=== PATIENT | male | born 1940 | race Caucasian/White ===

== ENCOUNTER 2020-05-04 13:48 | Inpatient (IN) | payer MEDICARE ==
[~2020-05-04] VITALS: Ht 190.5 cm; Wt 89.5 kg
[2020-05-04] MEDS ORDERED: LIDOCAINE 2%/EPI 1:100,000 20 ML VIAL. INJ ONE (14:15)
--- NOTE | 2020-05-04 15:05 | RAD ---
EXAM: CT head, facial bones, and cervical spine without contrast INDICATION: Jaw pain and swelling after head injury COMPARISON: None TECHNIQUE: Axial CT imaging through the head, facial bones, and cervical spine without intravenous co ntrast. Sagittal and coronal reformats were obtained. One or more of the following individualized dose reduction techniques were utilized for this examinat ion: 1. Automated exposure control 2. Adjustment of the mA and/or kV according to patient size 3. Use of iterative reconstruction technique. FINDINGS: CT head: Ventricles and sulci are mildly enlarged. There is mild periventricular white matter hypoattenuation. No intracranial hemorrhage, acute infarct, or mass lesion. The calvarium is intact. The paranasal si nuses and mastoid air cells are clear. There are calcifications in the internal carotid arteries. Roseline bes and orbits are intact. Facial bones: There is a comminuted fracture of the left hemimandible involving the parasymphysis and body. This results in a mildly displaced fragment that measures 2.5 x 1.0 cm. Additional displaced o blique fracture of the right mandibular condyle. This extends into the temporomandibular joint which is widened. There is no dislocation. Soft tissue gas and swelling is seen around both fractures. The patient is edentulous. There is a defect in the palatine process on the left with a separate 1.2 x 0. 9 cm chronic-appearing osseous fragment within the defect, of uncertain etiology. This could be posts urgical related to bone grafting for dental implant. Sequela of chronic infection also possible. Glob es and orbits are intact. Pterygoid plates are intact. CT cervical spine: No acute fracture. Alignment is normal. There is moderate disc space narrowing wit h osteophyte formation. Multilevel facet arthrosis. There are varying degrees of foraminal narrowing, greatest on the right C5-C6 where it is moderate. No bony canal narrowing. Prevertebral soft tissues normal. This is portion of the lung apices are clear. IMPRESSION: 1. No acute intracranial abnormality. 2. Mildly displaced fracture of the left hemimandible involving the parasymphysis and body. 3. Mildly displaced fracture of the right mandibular condyle with disruption of the joint. No disloca tion. 4. Abnormality of the left palatine process that may be sequela of bone grafting or sequela of chroni c infection. Correlate clinically. 5. No acute osseous abnormality of the cervical spine. Electronically signed by: Vi Heller MD (05/04/2020 3:03 PM) [id number]
--- NOTE | 2020-05-04 15:07 | ED.ADGEN ---
Past Medical History Past Medical History: No Pertinent History Past Surgical History: No Surgical History Smoking Status: Never Smoker Alcohol Use: None General Adult EDM: Chief Complaint: TRAUMA ALERT HPI: HPI: Patient is a 79 year old male who presents to the ER via EMS with complaints of left lower jaw pain after tripping over his shoes and falling by his mailbox today. Patient reports that when he fell he had both his upper and lower dentures and in the upper denture split in half. He denies any loss consciousness, neck, back, or extremity pain. Patient denies any dizziness prior to the fall. He currently denies any chest pain, shortness of breath, palpitations, fever, cough, abdominal pain, nausea, vomiting, diarrhea, saddle anesthesia, or loss of bowel/bladder control. Patient is unsure when his last tetanus shot was. He denies any medical or surgical history. Patient currently rates pain 3 out of 10 on the pain scale. He denies any alleviating factors the pain is worse with palpation and movement of his lower jaw. Review of Systems: Review of Systems: Complete ROS is negative unless otherwise noted in HPI. Current Medications: Current Medications Medications (Trade) Dose Ordered Sig/[facility] Start Time Stop Time Status Last Admin Dose Admin Cefazolin Sodium (Ancef) 1 gm 1X ONCE 05/04/20 15:30 05/04/20 15:31 DC 05/04/20 15:40 1 GM Diphtheria/ Tetanus/Acell Pertussis (ADACEL TDap SYRINGE) 0.5 ml ONCE ONCE 05/04/20 15:30 05/04/20 15:31 DC 05/04/20 15:42 0.5 ML Lidocaine/ Epinephrine (LIDOCAINE 2%-EPI 1:100,000 multi-dose) 20 ml 1X ONCE 05/04/20 14:15 05/04/20 14:30 DC 05/04/20 14:34 20 ML Morphine Sulfate (Morphine Sulfate) 2 mg PRN Q2HR PRN 05/04/20 15:30 05/05/20 15:29 05/04/20 15:31 2 MG Ondansetron HCl (Zofran) 4 mg PRN Q8HRS PRN 05/04/20 15:30 05/05/20 15:29 05/04/20 15:36 4 MG Sodium Chloride 1,000 ml @ 125 mls/hr Q8H 05/04/20 15:30 05/05/20 15:29 05/04/20 15:37 125 MLS/HR Allergies: Allergies: Allergies Coded Allergies Type Severity Reaction Last Updated Verified iodine Allergy Unknown Hives 05/04/20 Yes Physical Exam: PE: See Above Constitutional: Well developed, well nourished, no acute distress, non-toxic appearance. [] HEENT: Normocephalic, bilateral external ears normal, nose normal; swelling to left mandible with 2 cm stellate laceration present, bleeding controlled; 1 cm horizontal laceration to patient's chin just below the lower lip that extends through the intraoral mucosa, bleeding controlled, no visible foreign body [] Eyes: PERRLA, EOMI, conjunctiva normal, no discharge. [] Neck: Normal range of motion, nontender, supple no stridor. [] Cardiovascular:Heart rate regular rhythm Lungs & Thorax: Respirations even and unlabored, no retractions, no respiratory distress Skin: Warm, dry, no erythema; see HEENT assessment Extremities: No cyanosis, ROM intact, no edema. [] Neurologic: Alert and oriented X 3, normal motor, normal sensory, no focal deficits noted. [] Psychologic: Affect normal, judgement normal, mood normal. [] Current Patient Data: Vital Signs: Vital Signs Date Time Temp Pulse Resp B/P (MAP) Pulse Ox O2 Delivery O2 Flow Rate FiO2 05/04/20 15:31 16 Room Air 05/04/20 15:02 66 166/84 (111) 96 05/04/20 13:48 98.5 98.5 EKG: EKG: [] Heart Score: C/O Chest Pain: No Risk Factors: Risk Factors: DM, Current or recent (<one month) smoker, HTN, HLP, family history of CAD, obesity. Risk Scores: Score 0 - 3: 2.5% MACE over next 6 weeks - Discharge Home Score 4 - 6: 20.3% MACE over next 6 weeks - Admit for Clinical Observation Score 7 - 10: 72.7% MACE over next 6 weeks - Early Invasive Strategies Radiology/Procedures: Radiology/Procedures: PROCEDURE: CT HEAD AND MAXILLOFACIAL WO EXAM: CT head, facial bones, and cervical spine without contrast INDICATION: Jaw pain and swelling after head injury COMPARISON: None TECHNIQUE: Axial CT imaging through the head, facial bones, and cervical spine without intravenous contrast. Sagittal and coronal reformats were obtained. One or more of the following individualized dose reduction techniques were utilized for this examination: 1. Automated exposure control 2. Adjustment of the mA and/or kV according to patient size 3. Use of iterative reconstruction technique. FINDINGS: CT head: Ventricles and sulci are mildly enlarged. There is mild periventricular white matter hypoattenuation. No intracranial hemorrhage, acute infarct, or mass lesion. The calvarium is intact. The paranasal sinuses and mastoid air cells are clear. There are calcifications in the internal carotid arteries. Globes and orbits are intact. Facial bones: There is a comminuted fracture of the left hemimandible involving the parasymphysis and body. This results in a mildly displaced fragment that measures 2.5 x 1.0 cm. Additional displaced oblique fracture of the right mandibular condyle. This extends into the temporomandibular joint which is widened. There is no dislocation. Soft tissue gas and swelling is seen around both fractures. The patient is edentulous. There is a defect in the palatine process on the left with a separate 1.2 x 0.9 cm chronic-appearing osseous fragment within the defect, of uncertain etiology. This could be postsurgical related to bone grafting for dental implant. Sequela of chronic infection also possible. Globes and orbits are intact. Pterygoid plates are intact. CT cervical spine: No acute fracture. Alignment is normal. There is moderate disc space narrowing with osteophyte formation. Multilevel facet arthrosis. There are varying degrees of foraminal narrowing, greatest on the right C5-C6 where it is moderate. No bony canal narrowing. Prevertebral soft tissues normal. This is portion of the lung apices are clear. IMPRESSION: 1. No acute intracranial abnormality. 2. Mildly displaced fracture of the left hemimandible involving the parasymphysis and body. 3. Mildly displaced fracture of the right mandibular condyle with disruption of the joint. No dislocation. 4. Abnormality of the left palatine process that may be sequela of bone grafting or sequela of chronic infection. Correlate clinically. 5. No acute osseous abnormality of the cervical spine. Electronically signed by: Vi Heller MD (05/04/2020 3:03 PM) [id number] Laceration Repair by me: Anesthesia: 2% lidocaine locally with epinephrine Location: Horizontal laceration of chin Tendon/Joint/Nerves: No injury Foreign body: None detected after copious irrigation and exploration with NS and chlorhexidine Technique: 2 simple Interrupted Sutures with 6 oh Prolene Complexity: No subcutaneous sutures/mucosal repair/edge excision Post Closure Length: 1 cm Anesthesia: 2 % lidocaine locally with epinephrine Location: Stellate laceration of external left mandible Tendon/Joint/Nerves: No injury Foreign body: None detected after copious irrigation and exploration with NS and chlorhexidine Technique: 3 simple Interrupted Sutures with 6-0 Prolene Complexity: No subcutaneous sutures/mucosal repair/edge excision Post Closure Length: 2 cm Patient's bleeding was easily controlled in the department and there is no indication of anemia. No evidence of compartment syndrome, neurologic injury, vascular injury, tendon laceration, or foreign body. [] [] Impression: Complete ROS is negative unless otherwise noted in HPI. Course & Med Decision Making: Course & Med Decision Making Pertinent Labs and Imaging studies reviewed. (See chart for details) 1459- Spoke with Dr. Clay Benitez and advised of patient in the ER with jaw fracture. Will admit pt to the hospitalist. 1510-spoke with Dr. Baldwin who is the admitting physician, and care was assumed following discussion of patient. Will admit patient for fall with head injury, mandible fractures, and lip laceration. Patient's vital signs stable. Patient remains afebrile, appears nontoxic, respirations even and unlabored. Patient will be admitted to the medical surgical floor. Patient's case and plan of care also discussed with Dr. Roth 1546-spoke with Dr. Benitez and advised of the open laceration to the left mandible and repair that was made. Also advised that patient has been given a gram of Ancef and is being admitted to the hospitalist. [] Dragon Disclaimer: Dragon Disclaimer: This electronic medical record was generated, in whole or in part, using a voice recognition dictation system. Departure Departure Impression: Primary Impression: Head injury, acute, without loss of consciousness Additional Impressions: Laceration of skin of chin Laceration of intraoral surface of lip Fracture of mandible Disposition: 09 ADMITTED INPT THIS HOSP Admitting Physician: GURMEET marti) Condition: STABLE Referrals: NO PCP (PCP) Problem Qualifiers Primary Impression: Head injury, acute, without loss of consciousness Encounter type: initial encounter Qualified Codes: S09.90XA - Unspecified injury of head, initial encounter Additional Impressions: Laceration of skin of chin Encounter type: initial encounter Qualified Codes: S01.81XA - Laceration without foreign body of other part of head, initial encounter Laceration of intraoral surface of lip Encounter type: initial encounter Qualified Codes: S01.511A - Laceration without foreign body of lip, initial encounter Fracture of mandible Encounter type: initial encounter Fracture type: open Mandible location: unspecified site of mandible Laterality: unspecified laterality Qualified Codes: S02.609B - Fracture of mandible, unspecified, initial encounter for open fracture DARRYL RAMIREZ L[employer] INST[employer]ER May 04, 2020 15:07
[2020-05-04] MEDS ORDERED: ceFAZolin SODIUM IV Push 1 GM VIAL. IVP ONE (15:30)
[2020-05-04] MEDS ORDERED: DIPH,PERTUSS(ACELL),TET VAC/PF 0.5 ML SYRINGE. VAX IM ONE (15:30)
[2020-05-04] MEDS ORDERED: ONDANSETRON PF 4 MG/2 ML VIAL. IV PRN (15:30)
[2020-05-04] MEDS: MORPHINE SULFATE 2 MG/ML VIAL. IV PRN ×2 (15:31→21:45)
[2020-05-04] MEDS: IV NORMAL SALINE 1000ML BAG 1,000 ML IV SCH (15:37)
[2020-05-04 15:49] LABS: BASO % 1 % (0-3); EOS # 0.1 x10^3/uL (0.0-0.7); EOS % 2 % (0-3); HEMATOCRIT 43.3 % (39.0-53.0); HEMOGLOBIN 14.7 g/dL (13.0-17.5); LYMPH # 1.8 x10^3/uL (1.0-4.8); LYMPH % 34 % (24-48); MEAN CORPUSCULAR HEMOGLOBIN 33 pg (25-35); MEAN CORPUSCULAR HGB CONC 34 g/dL (31-37); MEAN CORPUSCULAR VOLUME 97 fL (79-100); MONO # 0.4 x10^3/uL (0.0-1.1); MONO % 7 % (0-9); NEUT % 57 % (31-73); PLATELET COUNT 199 x10^3/uL (140-400); RED BLOOD COUNT 4.47 x10^6/uL (4.30-5.70); RED CELL DISTRIBUTION WIDTH 14.2 % (11.5-14.5); WHITE BLOOD COUNT 5.3 x10^3/uL (4.0-11.0)
[2020-05-04 15:54] LABS: CALCIUM 8.3 mg/dL (8.5-10.1); CREATININE 1.2 mg/dL (0.7-1.3); GFR 58.4; POTASSIUM 3.7 mmol/L (3.5-5.1)
[2020-05-04 16:00] LABS: ALBUMIN 3.5 g/dL (3.4-5.0); TOTAL BILIRUBIN 0.4 mg/dL (0.2-1.0); TOTAL PROTEIN 7.1 g/dL (6.4-8.2)
--- NOTE | 2020-05-04 17:06 | HP ---
ADMIT DATE: 05/04/2020 CHIEF COMPLAINT: Fall with facial trauma. 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 Basically, today he tripped and fell, struck his face. The ER doctor ordered some imaging. He does have bilateral mandibular fracture. He also has a laceration on the upper and lower jaw. We are going to admit the patient. We have consulted Dr. Mororw. PAST MEDICAL HISTORY: Benign. ALLERGIES: IODINE. FAMILY HISTORY: Diabetes. 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 MEDICATIONS: Reviewed, please for the MRAD. REVIEW OF SYSTEMS: GENERAL: No history of weight change, weakness or fevers. SKIN: No bruising, hair changes or rashes. EYES: No blurred, double or loss of vision. NOSE AND THROAT: No history of nosebleeds, hoarseness or sore throat. HEENT: He complains of jaw pain. HEART: No history of palpitations, chest pain or shortness of breath on exertion. LUNGS: Denies cough, hemoptysis, wheezing or shortness of breath. GASTROINTESTINAL: Denies changes in appetite, nausea, vomiting, diarrhea or constipation. GENITOURINARY: No history of frequency, urgency, hesitancy or nocturia. NEUROLOGIC: Denies history of numbness, tingling, tremor or weakness. PSYCHIATRIC: No history of panic, anxiety or depression. ENDOCRINE: No history of heat or cold intolerance, polyuria or polydipsia. EXTREMITIES: Denies muscle weakness, joint pain, pain on walking or stiffness. PHYSICAL EXAMINATION: VITALS: Within normal limits and are stable. GENERAL: No apparent distress. Alert and oriented. HEENT: He has 2 lacerations, 1 on the upper jaw, 1 on the lower jaw. He does have a lot of bruising inside his mouth. He is edentulous. EYES: Extraocular muscles are intact, pupils are equally round and reactive to light and accommodation MUSCULOSKELETAL: Well developed, well nourished, good range of motion ENDOCRINE: No thyromegaly was palpated LYMPHATICS: No cervical chain or axillary nodes were noted HEMATOPOIETIC: No bruising NECK: Supple, no JVD, no thyromegaly was noted. LUNGS: Clear to auscultation in all lung cohen without rhonchi or wheezing. HEART: RRR, S1, S2 present. Peripheral pulses intact, no obvious murmurs were noted. ABDOMEN: Soft, nontender. Positive bowel sounds no organomegaly, normal bowel sounds. EXTREMITIES: Without any cyanosis, clubbing, or edema. Pedal pulses intact, Homans sign is negative. NEUROLOGIC: Normal speech, normal tone. A and O x 3, moves all extremities, no obvious focal deficits. PSYCHIATRIC: Normal affect, normal mood. Stable. SKIN: No ulcerations or rashes, good skin turgor, no jaundice. VASCULAR: Good capillary refill, neurovascular bundle appears to be intact. LABORATORY DATA: Hematology is normal. Electrolytes are normal. ASSESSMENT AND PLAN: Fall with bilateral mandibular fracture. The patient is be admitted. We have consulted Dr. Morrow. For now, we are doing, pain meds, IV fluids, home meds, deep venous thrombosis prophylaxis. Full code. IV saline, p.r.n. morphine. [place] DO DR: [email or web address]/gifty JOB#: [id number] / [id number]
--- NOTE | 2020-05-04 17:59 | PDOC1 ---
H & P. DATE OF SERVICE: DATE: 05/04/20 TIME: 17:43 HPI: 79 YOM was walking to get his mail today and tripped on the concrete and struck his face to the pavement and suffered multiple mandible fractures ROS: Constitutional: Denies fever, fatigue, chills HEENT: Denies sore throat, vision changes Cardio: Denies chest pain, dyspnea with exertion, syncope, palpitations, edema Pulmonary: Denies shortness of breath, cough, wheezing GI: Denies nausea, vomiting, diarrhea, constipation : Denies dysuria, frequency, urgency, incontinence Skin: Denies new lesions Neuro: Denies weakness, paresthesias ED COURSE: Admitted, imaging and H&P successfully closed lacerations by ER team Imaging demonstrates comminuted left mandibular body/parasymphysis fracture and right intracapsular condylar fracture PMH: HTN Elderly FAMILY HX: HTN DM SOCIAL HX: Patient denies EtHO/Tob/Substance use SURGICAL HX: unremarkable MEDS: Reviewed and reconciled ALLERGIES: Reviewed PE: Alert, oriented, no acute distress EOMI, sclera non-icteric Right condylar tenderness Left mandibular body/parasymphysis tenderness with grossly mobile mandible fracture. ++hematoma, and bleeding from intraoral lip laceration. Neck supple RRR, no murmur CTAB, no wheezes, crackles or rhonchi Soft, NT, ND, normal bowel sounds, no rebound, guarding. Negative Basurto's sign. No edema, cyanosis. Normal capillary refill. Calm, cooperative, mood/affect within normal limits ASSESSMENT & PLAN: 79 yom s/p fall from standing with resulting mandible fractures Plan Admission with IM, OMFS to consult and plan to operate on 05/05/2020 Full liquid (no-chew) diet and NPO after midnight Consent obtained. Anticipate hospital course with admission and dischcarge this weekend as patient demonstrates appropriate recovery Justifications for Admission Other Justification CARD,KAYLYN Chan DMD May 04, 2020 17:59
--- NOTE | 2020-05-04 18:34 | NUR ---
Pt. here from ER and placed in bed. Pt. states pain is tolerable and he is comfortable. at bedside.
[2020-05-04 19:15] VITALS: BP 183/91
[2020-05-04 23:20] VITALS: BP 110/83
[2020-05-05] MEDS: MORPHINE SULFATE 2 MG/ML VIAL. IV PRN ×2 (02:40→08:13)
[2020-05-05] MEDS: IV NORMAL SALINE 1000ML BAG 1,000 ML IV SCH ×2 (02:40→13:52)
[2020-05-05 03:13] VITALS: BP 165/86
[2020-05-05] MEDS ORDERED: OMEP20TA63 PO (04:42)
[2020-05-05 07:00] VITALS: BP 159/82
--- NOTE | 2020-05-05 08:46 | PDOC ---
[employer] PROGRESS NOTE Date of Service DOS: DATE: 05/05/20 TIME: 08:33 Chief Complaint Chief Complaint A/P: Accidental fall Mildly displaced fracture of the left hemimandible involving the parasymphysis and body. Mildly displaced fracture of the right mandibular condyle with disruption of the joint. No dislocation. Abnormality of the left palatine process that may be sequela of bone grafting or sequela of chronic infection. Correlate clinically. No acute osseous abnormality of the cervical spine. History of Present Illness History of Present Illness Mr Altman is a 79 yo M w/ no PMHx who presents to the ER via EMS with complaints of left lower jaw pain after tripping over his shoes and falling by his mailbox today. Patient reports that when he fell he had both his upper and lower dentures and in the upper denture split in half. He denies any loss consciousness, neck, back, or extremity pain. Patient denies any dizziness prior to the fall. He currently denies any chest pain, shortness of breath, palpitations, fever, cough, abdominal pain, nausea, vomiting, diarrhea, saddle anesthesia, or loss of bowel/bladder control.who tripped and kicked his right heel with his left foot. Pain controlled in his jaw. NPO for jaw surgery today. Vitals/I&O Vitals/I&O: Vital Signs Date Time Temp Pulse Resp B/P (MAP) Pulse Ox O2 Delivery O2 Flow Rate FiO2 05/05/20 08:13 20 Room Air 05/05/20 07:00 98.8 56 159/82 (107) 94 98.8 I & O 05/04/20 05/04/20 05/05/20 15:00 23:00 07:00 Intake Total 480 ml Output Total 250 ml Balance 230 ml Physical Exam General: Alert, Oriented X3, Cooperative, moderate distress Heart: Regular rate, Normal S1, Normal S2 Lungs: Clear Abdomen: Normal bowel sounds, Soft Extremities: No clubbing, No cyanosis Skin: No rashes, No breakdown Labs Labs: Laboratory Tests Test 05/04/20 14:04 05/05/20 00:35 White Blood Count 5.3 x10^3/uL (4.0-11.0) Red Blood Count 4.47 x10^6/uL (4.30-5.70) Hemoglobin 14.7 g/dL (13.0-17.5) Hematocrit 43.3 % (39.0-53.0) Mean Corpuscular Volume 97 fL (79-100) Mean Corpuscular Hemoglobin 33 pg (25-35) Mean Corpuscular Hemoglobin Concent 34 g/dL (31-37) Red Cell Distribution Width 14.2 % (11.5-14.5) Platelet Count 199 x10^3/uL (140-400) Neutrophils (%) (Auto) 57 % (31-73) Lymphocytes (%) (Auto) 34 % (24-48) Monocytes (%) (Auto) 7 % (0-9) Eosinophils (%) (Auto) 2 % (0-3) Basophils (%) (Auto) 1 % (0-3) Neutrophils # (Auto) 3.0 x10^3/uL (1.8-7.7) Lymphocytes # (Auto) 1.8 x10^3/uL (1.0-4.8) Monocytes # (Auto) 0.4 x10^3/uL (0.0-1.1) Eosinophils # (Auto) 0.1 x10^3/uL (0.0-0.7) Basophils # (Auto) 0.0 x10^3/uL (0.0-0.2) Sodium Level 141 mmol/L (136-145) Potassium Level 3.7 mmol/L (3.5-5.1) Chloride Level 103 mmol/L (98-107) Carbon Dioxide Level 30 mmol/L (21-32) Anion Gap 8 (6-14) Blood Urea Nitrogen 23 mg/dL (8-26) Creatinine 1.2 mg/dL (0.7-1.3) Estimated GFR (Cockcroft-Gault) 58.4 BUN/Creatinine Ratio 19 (6-20) Glucose Level 139 mg/dL (70-99) Calcium Level 8.3 mg/dL (8.5-10.1) Total Bilirubin 0.4 mg/dL (0.2-1.0) Aspartate Amino Transf (AST/SGOT) 24 U/L (15-37) Alanine Aminotransferase (ALT/SGPT) 36 U/L (16-63) Alkaline Phosphatase 79 U/L (46-116) Total Protein 7.1 g/dL (6.4-8.2) Albumin 3.5 g/dL (3.4-5.0) Albumin/Globulin Ratio 1.0 (1.0-1.7) SARS-CoV-2 Antigen (Rapid) Negative (NEGATIVE) Assessment and Plan Assessmemt and Plan Problems Medical Problems: (1) Fracture of mandible Status: Acute (2) Head injury, acute, without loss of consciousness Status: Acute (3) Laceration of intraoral surface of lip Status: Acute (4) Laceration of skin of chin Status: Acute Comment Review of Relevant I have reviewed the following items florian (where applicable) has been applied. Medications: Current Medications Medications (Trade) Dose Ordered Sig/[facility] Route PRN Reason Start Time Stop Time Status Last Admin Dose Admin Lidocaine/ Epinephrine (LIDOCAINE 2%-EPI 1:100,000 multi-dose) 20 ml 1X ONCE INJ 05/04/20 14:15 05/04/20 14:30 DC 05/04/20 14:34 Cefazolin Sodium (Ancef) 1 gm 1X ONCE IVP 05/04/20 15:30 05/04/20 15:31 DC 05/04/20 15:40 Diphtheria/ Tetanus/Acell Pertussis (ADACEL TDap SYRINGE) 0.5 ml ONCE ONCE VAX IM 05/04/20 15:30 05/04/20 15:31 DC 05/04/20 15:42 Ondansetron HCl (Zofran) 4 mg PRN Q8HRS PRN IV NAUSEA/VOMITING 05/04/20 15:30 05/05/20 15:29 05/04/20 15:36 Morphine Sulfate (Morphine Sulfate) 2 mg PRN Q2HR PRN IV PAIN 05/04/20 15:30 05/05/20 15:29 05/05/20 08:13 Sodium Chloride 1,000 ml @ 125 mls/hr Q8H IV 05/04/20 15:30 05/05/20 15:29 05/05/20 02:40 Justifications for Admission Other Justification JOLIE WOODWARD MD May 05, 2020 08:46
--- NOTE | 2020-05-05 09:51 | NUR ---
SW following. Discussed with RN, pt from home with , room air, NPO, rapid COVID-19 negative. Pt having surgery today around 1630. PT/OT being ordered for after surgery. SW will continue to follow.
[2020-05-05 11:00] VITALS: BP 195/94
[2020-05-05] MEDS ORDERED: CHLORHEXIDINE 0.12% 15 ML MOUTHWASH. ONE (14:44)
[2020-05-05] MEDS ORDERED: BUPIVACAINE-EPI 0.5% 30 ML VIAL KIT. ONE (14:44)
[2020-05-05] MEDS ORDERED: OXYMETAZOLINE 0.05% NASAL SPRAY 30ML BOTTLE. NS ONE (14:44)
[2020-05-05] MEDS ORDERED: fentaNYL PF VIAL 100 MCG/2 ML VIAL IVP PRN ×2 (14:45)
[2020-05-05] MEDS ORDERED: CONTRAST GIVEN. MC PRN (14:45)
[2020-05-05] MEDS ORDERED: PROCHLORPERAZINE 10 MG/2 ML VIAL. IVP PRN (14:45)
[2020-05-05] MEDS ORDERED: CHLORHEXIDINE 0.12% 15 ML MOUTHWASH. SWSP ONE (14:45)
[2020-05-05] MEDS ORDERED: HYDROmorphone 2 MG/ML VIAL IVP PRN (14:45)
[2020-05-05] MEDS ORDERED: MORPHINE SULFATE 2 MG/ML VIAL. IVP PRN (14:45)
[2020-05-05] MEDS ORDERED: IV RINGERS,LACTATED 1000ML 1,000 ML IV SCH (14:45)
[2020-05-05 15:00] VITALS: BP 168/89
[2020-05-05] MEDS ORDERED: LIDOCAINE 2% PF 5 ML VIAL. ONE (15:38)
[2020-05-05] MEDS ORDERED: ROCURONIUM 50 MG/5 ML VIAL. ONE ×2 (15:38→17:51)
[2020-05-05] MEDS ORDERED: fentaNYL PF VIAL 100 MCG/2 ML VIAL ONE ×2 (15:38→17:47)
[2020-05-05] MEDS ORDERED: PROPOFOL 10 MG/ML (20ML) VIAL. IV ONE (15:38)
[2020-05-05] MEDS ORDERED: LIDOCAINE 2% TOPICAL JELLY 5GM TUBE. TP ONE (15:42)
[2020-05-05] MEDS ORDERED: FAMOTIDINE 20 MG/2 ML VIAL ONE (16:06)
[2020-05-05] MEDS ORDERED: SUCCINYLCHOLINE 200 MG/10 ML VIAL. ONE (16:06)
--- NOTE | 2020-05-05 16:37 | PDOC ---
GENERAL General: 79 yom HD 2 AAOX3 Patient held NPO today for OR intervention ORIF today patient reports that he is comfortable Discussed lesion on upper left maxilla, plan for biopsy today VITAL SIGNS Vital Signs/I&O: Vital Signs Date Time Temp Pulse Resp B/P (MAP) Pulse Ox O2 Delivery O2 Flow Rate FiO2 05/05/20 16:15 99.7 70 20 156/84 95 Room Air 99.7 I & O 05/04/20 05/04/20 05/05/20 15:00 23:00 07:00 Intake Total 480 ml Output Total 250 ml Balance 230 ml ALLERGIES Allergies: Allergies Coded Allergies Type Severity Reaction Last Updated Verified iodine Allergy Unknown Hives 05/04/20 Yes LAB Lab: Laboratory Tests Test 05/05/20 00:35 SARS-CoV-2 Antigen (Rapid) Negative (NEGATIVE) ASSESSMENT & PLAN A&P 79 yom s/p fall with resulting comminuted mandible fracture. Incidental lesion found on upper left maxilla / palate area Plant to OR today for ORIF percutaenous approach and fixation of left mandible, and closed reduction of right TMJ Add to plan to biopsy upper left maxillary lesion Justifications for Admission Other Justification CARD,KAYLYN Chan DMD May 05, 2020 16:37
[2020-05-05] MEDS: AMPICILLIN/SULBACTAM 3 GM in IV NORMAL SALINE 100ML 100 ML IV SCH ×2 (17:06→23:43)
[2020-05-05] MEDS ORDERED: ONDANSETRON PF 4 MG/2 ML VIAL. ONE (17:23)
[2020-05-05] MEDS ORDERED: DEXAMETHASONE SOD PHOS 4 MG/ML VIAL ONE (17:23)
[2020-05-05] MEDS ORDERED: SEVOFLURANE > 120 MINUTES. IH ONE (17:47)
[2020-05-05] MEDS ORDERED: GLYCOPYRROLATE 1 MG/5 ML VIAL. ONE (18:03)
[2020-05-05] MEDS ORDERED: NEOSTIGMINE METHYLSULFATE 5 MG/5 ML SYRINGE. ONE (18:03)
[2020-05-05] MEDS ORDERED: BACITRACIN TOPICAL OINT PACKET. TP ONE (19:43)
--- NOTE | 2020-05-05 20:45 | PDOC4 ---
OPERATIVE NOTE Date: Date: May 05, 2020 Pre-Op Diagnosis: Comminuted mandible fractures Left palatal lesion (maxillary lesion) Post-Op Diagnosis: Comminuted mandible fractures Left palatal lesion (maxillary lesion) Procedure Performed: Percutaneous ORIF Comminuted mandible fractures Biopsy Left palatal lesion (maxillary lesion) Surgeon: anna Anesthesia Type: Stefani Blood Loss: 150 Specimans Obtained: Left palatal lesion (maxillary lesion) Findings: see dictation Complications: none noted Operative Note: see KAYLYN Constantino DMD May 05, 2020 20:45
--- NOTE | 2020-05-05 20:50 | PDOC ---
SUBJECTIVE Subjective OR case completed, Planning Discharge when appropriate Pt recovering well in PACU OBJECTIVE Objective Pt recovering well in PACU Vital Signs Vital Signs Date Time Temp Pulse Resp B/P (MAP) Pulse Ox O2 Delivery O2 Flow Rate FiO2 05/05/20 16:15 99.7 70 20 156/84 95 Room Air 99.7 05/05/20 15:00 97.8 63 18 168/89 (115) 93 Room Air 97.8 05/05/20 11:00 97.5 73 19 195/94 (127) 91 Room Air 97.5 05/05/20 08:43 20 91 Room Air 05/05/20 08:13 20 Room Air 05/05/20 08:00 Room Air 05/05/20 07:00 98.8 56 18 159/82 (107) 94 Room Air 98.8 05/05/20 03:13 98.8 74 20 165/86 (112) 93 Room Air 98.8 05/05/20 03:10 Room Air 05/05/20 02:40 Room Air 05/04/20 23:20 98.1 69 18 110/83 (92) 94 Room Air 98.1 05/04/20 22:15 Room Air 05/04/20 21:45 Room Air I & O Intake and Output 05/05/20 07:00 Intake Total 480 ml Output Total 250 ml Balance 230 ml Intake Oral 480 ml Output Urine Total 250 ml ASSESSMENT/PLAN Assessment/Plan OR case completed, Ok to D/C from OMS perspective Planning Discharge when appropriate from Internal medicine perspective Recs: Peridex BID PO Augmentin for 5-7 days Bacitracin BID x 4-5 days then switch wound care to Vaseline F/U with OMS next Friday Call Dr. Coleman's clinic with any questions or concerns [phone] COMMENT Lab Laboratory Tests Test 05/05/20 00:35 SARS-CoV-2 Antigen (Rapid) Negative (NEGATIVE) Justifications for Admission Other Justification KAYLYN COLEMAN DMD May 05, 2020 20:50
[2020-05-05] MEDS: BACITRACIN TOPICAL OINT PACKET. TP SCH (22:01)
[2020-05-05] MEDS: CHLORHEXIDINE 0.12% 15 ML MOUTHWASH. SWSP SCH (22:01)
--- NOTE | 2020-05-05 22:07 | NUR ---
2107- This RN received report from Jessica in PACU. Pt. arrived on unit at 5 by bed. Pt. is alert to self and is able to verbalize his first and last name but no other questions. Pt. does nod yes or no. He was able to swallow a cup of pudding, some apple sauce and water without difficulty. Will continue to monitor.
--- NOTE | 2020-05-05 22:28 | OP ---
DATE OF SURGERY: 05/05/2020 OPERATING SERVICE: glass inserter. ATTENDING PHYSICIAN: Angelo Coleman DMD PREOPERATIVE DIAGNOSES: 1. Right intracapsular condylar fracture of the mandible. 2. Left comminuted mandible fracture body and parasymphysis. 3. Left maxillary palatal lesion. POSTOPERATIVE DIAGNOSES: 1. Right intracapsular condylar fracture of the mandible. 2. Left comminuted mandible fracture body and parasymphysis. 3. Left maxillary palatal lesion. PROCEDURES PERFORMED: 1. ORIF of left comminuted mandible fracture with a percutaneous approach. 2. Excision of palatal lesion. High suspicion for peripheral ossifying fibroma. BRIEF HISTORY: The patient is a 79-year-old male who reports he was walking in his driveway and tripped and fell on his face and fractured his mandible and reported to the [facility] ER with significant pain, ecchymosis and hematoma. He was reviewed by the ER team, found to have a stable C-spine, cleared head scan, but with aforementioned mandibular injuries. History and physical was also performed by Oral Maxillofacial Surgery Service where he was found to have comminuted mandible fractures and maxillary palatal lesion was an incidental finding. The patient noted this lesion has been present for years and has been slowly growing and occupying large portion of the left palate. History and physical was performed. Permit was obtained. The patient was booked for surgery the following day. SPECIMEN SENT: Left maxillary palatal lesion. High suspicion for peripheral ossifying fibroma, request has been placed for PCL lab for cross lab consultation. DRAINS PLACED: None. COMPLICATIONS: None noted at the time of surgery. ESTIMATED BLOOD LOSS: Approximately 150 mL. OPERATIVE DESCRIPTION: After the history and physical was updated in the preoperative holding area, the patient was transported by the Anesthesia Service to the operating suite, placed in the supine position. General anesthesia was induced. He was intubated with an oral intubation, which was secured to the right face. The patient was then prepped and draped in normal sterile fashion. Timeout was initiated and performed without complication. The patient was then prepped and draped in normal fashion. The procedure began with administration of 15 mL of 0.5% Marcaine, 1:200,000 epinephrine into the neck. At the culmination of the procedure, an additional 15 mL were administered into the neck and maxilla as the lesion was removed from the maxilla. Preoperative antibiotics were administered. All pressure points were padded and checked by preoperatively and Orellana was also placed. Surgery began with a full-thickness, skin incision with a 15 blade in a curvilinear fashion to align with natural neck creases. Incision was taken through the skin and subcutaneous tissue, platysma and through the superficial layer of the deep cervical fascia. This layer was then elevated and dissection was carried superiorly to the neck and to the inferior border of the mandible. The comminuted mandible fractures were identified, then reduced and fixation was performed with KLS mini plates. Two mini plates were placed at the inferior border to grossly reduce the fractures. A template was then adapted and a 2.0 locking reconstruction plate was utilized on the lateral inferior border of the mandible to perform excellent stabilization of this fracture. All screws were placed under copious normal sterile saline irrigation. The wound was then lavaged with copious normal sterile saline irrigation. The reduction appeared to be appropriate and optimized considering the oblique nature of the fractures and comminution of the fractures. The wound was then closed in layers with 3-0 Vicryl sutures and the skin was closed with a 4-0 Prolene running suture. The anesthesia was then administered into the neck and then the mouth. Moistened throat pack was placed and mouth was then cleansed with Peridex. The lesion was on the maxilla and occupied much of the left maxillary palatal area and resulted in significant resorption of the palatal bone. The stalk of the lesion was identified and severed with a combination of a 15 blade and Bovie electrocautery. The foot process of the stalk of the lesion was curetted to address this area and to attempt to remove any recurrence propagation of this lesion in this area. The wound was lavaged with copious normal sterile saline irrigation and oversewn with 3-0 Vicryl suture with 3 [id number] sutures to assist with hemostasis. Attention was then directed to clean the area, oral cavity was lavaged and suctioned, the throat pack was removed, and an OG was passed and the stomach was decompressed. The patient was then returned to the care of Anesthesia, where he was awakened and extubated without complication and transported to the PACU in stable condition. ANGELO COLEMAN DMD DR: [email or web address]/gifty JOB#: [id number] / [id number] WEI
[2020-05-05 23:30] VITALS: BP 149/71
[2020-05-06 00:01] VITALS: BP 144/70
[2020-05-06 02:00] VITALS: BP 154/79
[2020-05-06 03:00] VITALS: BP 146/72
[2020-05-06] MEDS: AMPICILLIN/SULBACTAM 3 GM in IV NORMAL SALINE 100ML 100 ML IV SCH ×2 (05:23→11:08)
[2020-05-06] MEDS ORDERED: HYDROcodone/APAP 10/325 1 TAB TABLET PO PRN (05:30)
[2020-05-06] MEDS ORDERED: HYDROcodone/APAP 5/325MG 1 TAB TABLET PO PRN (05:30)
[2020-05-06 07:00] VITALS: BP 171/83
--- NOTE | 2020-05-06 08:24 | RAD ---
Exam performed: 2 views mandible. HISTORY: Postop evaluation. DATE OF SERVICE: 05/05/2020. COMPARISON: CT maxillofacial from 05/04/2020. FINDINGS: AP and lateral view of the mandible is obtained. There is interval open reduction internal fixation o f a previously seen comminuted fracture of the body of mandible secured by malleable plate and severa l screws. Alignment appears satisfactory. Previously seen fracture right mandibular condyle is not cl early identified on this study due to overlapping structures. There is diffuse soft tissue swelling. No foreign bodies identified. IMPRESSION: Interval open reduction and internal fixation of a previously seen comminuted mandibular fracture Electronically signed by: Jayashree Rodriguez MD (05/06/2020 8:22 AM) [id number]
[2020-05-06] MEDS: CHLORHEXIDINE 0.12% 15 ML MOUTHWASH. SWSP SCH (09:06)
[2020-05-06] MEDS: BACITRACIN TOPICAL OINT PACKET. TP SCH (09:07)
--- NOTE | 2020-05-06 09:23 | PDOC ---
[employer] PROGRESS NOTE Date of Service DOS: DATE: 05/06/20 TIME: 09:22 Chief Complaint Chief Complaint A/P: Accidental fall Mildly displaced fracture of the left hemimandible involving the parasymphysis and body. Mildly displaced fracture of the right mandibular condyle with disruption of the joint. No dislocation. Abnormality of the left palatine process that may be sequela of bone grafting or sequela of chronic infection. Correlate clinically. No acute osseous abnormality of the cervical spine. History of Present Illness History of Present Illness Mr Altman is a 79 yo M w/ no PMHx who presents to the ER via EMS with complaints of left lower jaw pain after tripping over his shoes and falling by his mailbox today. Patient reports that when he fell he had both his upper and lower dentures and in the upper denture split in half. He denies any loss consciousness, neck, back, or extremity pain. Patient denies any dizziness prior to the fall. He currently denies any chest pain, shortness of breath, palpitations, fever, cough, abdominal pain, nausea, vomiting, diarrhea, saddle anesthesia, or loss of bowel/bladder control.who tripped and kicked his right heel with his left foot. 05/05: S/p ORIF of left comminuted mandible fracture with a percutaneous approach and Excision of palatal lesion. (High suspicion for peripheral ossifying fibroma per Dr Benitez) Seen POD #1. Pain is well controlled. Tolerating p.o. well. Discussed with bedside is able to ambulate around the halls well no PT or OT needs. Discussed with Dr. Benitez: Peridex BID PO Augmentin for 5-7 days Bacitracin BID x 4-5 days then switch wound care to Vaseline F/U with OMS next Friday Call Dr. Benitez's clinic with any questions or concerns Please have patient call Friday for appointment [phone] Vitals/I&O Vitals/I&O: Vital Signs Date Time Temp Pulse Resp B/P (MAP) Pulse Ox O2 Delivery O2 Flow Rate FiO2 05/06/20 07:00 98.1 93 18 171/83 (112) 94 Room Air 98.1 05/05/20 20:40 10 l I & O 05/05/20 05/05/20 05/06/20 15:00 23:00 07:00 Intake Total 1300 ml Output Total 375 ml 400 ml 200 ml Balance -375 ml 900 ml -200 ml Physical Exam General: Alert, Oriented X3, Cooperative, moderate distress Heart: Regular rate, Normal S1, Normal S2 Lungs: Clear Abdomen: Normal bowel sounds, Soft Extremities: No clubbing, No cyanosis Skin: No rashes, No breakdown Assessment and Plan Assessmemt and Plan Problems Medical Problems: (1) Fracture of mandible Status: Acute (2) Head injury, acute, without loss of consciousness Status: Acute (3) Laceration of intraoral surface of lip Status: Acute (4) Laceration of skin of chin Status: Acute Comment Review of Relevant I have reviewed the following items florian (where applicable) has been applied. Medications: Current Medications Medications (Trade) Dose Ordered Sig/Romana Route PRN Reason Start Time Stop Time Status Last Admin Dose Admin Ringer's Solution 1,000 ml @ 30 mls/hr Q24H IV 05/05/20 14:45 05/06/20 02:44 DC 05/05/20 20:33 Bupivacaine HCl/ Epinephrine Bitart (Sensorcain-Epi 0.5% Kit) 30 ml STK-MED ONCE .ROUTE 05/05/20 14:44 05/05/20 14:45 DC 05/05/20 17:25 Ampicillin Sodium/ Sulbactam Sodium 3 gm/Sodium Chloride 100 ml @ 200 mls/hr Q6HRS IV 05/05/20 17:00 05/06/20 05:23 Chlorhexidine Gluconate (Peridex) 15 ml BID SWSP 05/05/20 21:00 05/06/20 09:06 Bacitracin (Bacitracin Zinc Oint Pkt) 1 pkt BID TP 05/05/20 21:00 05/06/20 09:07 Bacitracin (Bacitracin Zinc Oint Pkt) 1 pkt STK-MED ONCE TP 05/05/20 19:43 05/05/20 19:44 DC 05/05/20 17:25 Justifications for Admission Other Justification JOLIE WOODWARD MD May 06, 2020 09:23
--- NOTE | 2020-05-06 09:57 | PDOC ---
GENERAL General: HD 3 POD 1 Patient is conversant, responds appropriately States that he is feeling well and that his pain is well controlled VITAL SIGNS Vital Signs/I&O: Vital Signs Date Time Temp Pulse Resp B/P (MAP) Pulse Ox O2 Delivery O2 Flow Rate FiO2 05/06/20 07:00 98.1 93 18 171/83 (112) 94 Room Air 98.1 05/05/20 20:40 10 I & O 05/05/20 05/05/20 05/06/20 15:00 23:00 07:00 Intake Total 1300 ml Output Total 375 ml 400 ml 200 ml Balance -375 ml 900 ml -200 ml ALLERGIES Allergies: Allergies Coded Allergies Type Severity Reaction Last Updated Verified iodine Allergy Unknown Hives 05/04/20 Yes MEDS Medications: Current Medications Medications (Trade) Dose Ordered Sig/Romana Route PRN Reason Start Time Stop Time Status Last Admin Dose Admin Ringer's Solution 1,000 ml @ 30 mls/hr Q24H IV 05/05/20 14:45 05/06/20 02:44 DC 05/05/20 20:33 Bupivacaine HCl/ Epinephrine Bitart (Sensorcain-Epi 0.5% Kit) 30 ml STK-MED ONCE .ROUTE 05/05/20 14:44 05/05/20 14:45 DC 05/05/20 17:25 Ampicillin Sodium/ Sulbactam Sodium 3 gm/Sodium Chloride 100 ml @ 200 mls/hr Q6HRS IV 05/05/20 17:00 05/06/20 05:23 Chlorhexidine Gluconate (Peridex) 15 ml BID SWSP 05/05/20 21:00 05/06/20 09:06 Bacitracin (Bacitracin Zinc Oint Pkt) 1 pkt BID TP 05/05/20 21:00 05/06/20 09:07 Bacitracin (Bacitracin Zinc Oint Pkt) 1 pkt STK-MED ONCE TP 05/05/20 19:43 05/05/20 19:44 DC 05/05/20 17:25 IMAGING Imaging: Mandible plan plain films demonstrate hardware in place and reduction of comminuted mandible fracture ASSESSMENT & PLAN A&P OR case completed, Ok to D/C from OMS perspective Discharge when appropriate from Internal medicine perspective Recs: Peridex BID PO Augmentin for 5-7 days Bacitracin BID x 4-5 days then switch wound care to Vaseline F/U with OMS next Friday Call Dr. Benitez's clinic with any questions or concerns Please have patient call Friday for appointment [phone] Justifications for Admission Other Justification VIR[place],KAYLYN Chan DMD May 06, 2020 09:57
[2020-05-06 11:00] VITALS: BP 169/93
[2020-05-06] MEDS ORDERED: CHLO473M SWSP (13:33)
[2020-05-06] MEDS ORDERED: AMOX1TAB58 PO (13:33)
[2020-05-06] MEDS ORDERED: BACI28.34 TP (13:33)
[2020-05-06] MEDS ORDERED: HYDR-2761 PO (13:33)
--- NOTE | 2020-05-06 13:36 | PDOC3 ---
Discharge Summary Visit Information Date of Admission: May 04, 2020 Date of Discharge: May 06, 2020 Admitting Diagnosis: Fracture of mandible Final Diagnosis Problems Medical Problems: (1) Fracture of mandible Status: Acute (2) Head injury, acute, without loss of consciousness Status: Acute (3) Laceration of intraoral surface of lip Status: Acute (4) Laceration of skin of chin Status: Acute Brief Hospital Course Allergies Allergies Coded Allergies Type Severity Reaction Last Updated Verified iodine Allergy Unknown Hives 05/04/20 Yes Vital Signs Vital Signs Date Time Temp Pulse Resp B/P (MAP) Pulse Ox O2 Delivery O2 Flow Rate FiO2 05/06/20 12:30 Room Air 05/06/20 11:00 98.0 73 18 169/93 (118) 94 98.0 05/05/20 20:40 10 Lab Results Laboratory Tests Test 05/04/20 14:04 05/05/20 00:35 White Blood Count 5.3 x10^3/uL (4.0-11.0) Red Blood Count 4.47 x10^6/uL (4.30-5.70) Hemoglobin 14.7 g/dL (13.0-17.5) Hematocrit 43.3 % (39.0-53.0) Mean Corpuscular Volume 97 fL (79-100) Mean Corpuscular Hemoglobin 33 pg (25-35) Mean Corpuscular Hemoglobin Concent 34 g/dL (31-37) Red Cell Distribution Width 14.2 % (11.5-14.5) Platelet Count 199 x10^3/uL (140-400) Neutrophils (%) (Auto) 57 % (31-73) Lymphocytes (%) (Auto) 34 % (24-48) Monocytes (%) (Auto) 7 % (0-9) Eosinophils (%) (Auto) 2 % (0-3) Basophils (%) (Auto) 1 % (0-3) Neutrophils # (Auto) 3.0 x10^3/uL (1.8-7.7) Lymphocytes # (Auto) 1.8 x10^3/uL (1.0-4.8) Monocytes # (Auto) 0.4 x10^3/uL (0.0-1.1) Eosinophils # (Auto) 0.1 x10^3/uL (0.0-0.7) Basophils # (Auto) 0.0 x10^3/uL (0.0-0.2) Sodium Level 141 mmol/L (136-145) Potassium Level 3.7 mmol/L (3.5-5.1) Chloride Level 103 mmol/L (98-107) Carbon Dioxide Level 30 mmol/L (21-32) Anion Gap 8 (6-14) Blood Urea Nitrogen 23 mg/dL (8-26) Creatinine 1.2 mg/dL (0.7-1.3) Estimated GFR (Cockcroft-Gault) 58.4 BUN/Creatinine Ratio 19 (6-20) Glucose Level 139 mg/dL (70-99) Calcium Level 8.3 mg/dL (8.5-10.1) Total Bilirubin 0.4 mg/dL (0.2-1.0) Aspartate Amino Transf (AST/SGOT) 24 U/L (15-37) Alanine Aminotransferase (ALT/SGPT) 36 U/L (16-63) Alkaline Phosphatase 79 U/L (46-116) Total Protein 7.1 g/dL (6.4-8.2) Albumin 3.5 g/dL (3.4-5.0) Albumin/Globulin Ratio 1.0 (1.0-1.7) SARS-CoV-2 Antigen (Rapid) Negative (NEGATIVE) Brief Hospital Course Mr Altman is a 79 yo M w/ no PMHx who presents to the ER via EMS with complaints of left lower jaw pain after tripping over his shoes and falling by his mailbox today. Patient reports that when he fell he had both his upper and lower dentures and in the upper denture split in half. He denies any loss consciousness, neck, back, or extremity pain. Patient denies any dizziness prior to the fall. He currently denies any chest pain, shortness of breath, palpitations, fever, cough, abdominal pain, nausea, vomiting, diarrhea, saddle anesthesia, or loss of bowel/bladder control.who tripped and kicked his right heel with his left foot. 05/05: S/p ORIF of left comminuted mandible fracture with a percutaneous approach and Excision of palatal lesion. (High suspicion for peripheral ossifying fibroma per Dr Coleman) Seen POD #1. Pain is well controlled. Tolerating p.o. well. Discussed with bedside is able to ambulate around the halls well no PT or OT needs. Consults: Maxillofacial surgeon Discussed with Dr. Coleman: Peridex BID PO Augmentin for 5-7 days Bacitracin BID x 4-5 days then switch wound care to Vaseline F/U with OMS next Friday Call Dr. Coleman's clinic with any questions or concerns Please have patient call Friday for appointment [phone] Problem list: Accidental fall Mildly displaced fracture of the left hemimandible involving the parasymphysis and body. Mildly displaced fracture of the right mandibular condyle with disruption of the joint. No dislocation. Abnormality of the left palatine process that may be sequela of bone grafting or sequela of chronic infection. Correlate clinically. No acute osseous abnormality of the cervical spine. Greater than 30 minutes spent on d/c Discharge Information Condition at Discharge: Improved Follow Up: Weeks (2) Disposition/Orders: D/C to Home Scheduled Amoxicillin/Potassium Clav (Augmentin 500-125 Tablet) 1 Each Tablet, 1 TAB PO BID for Mandibular fracture for 7 Days, #14 Ref 0 Prescribed by: JOLIE WOODWARD MD on 05/06/20 1333 Bacitracin/Polymyxin B Sulfate (Polysporin Topical Oint) 28.3 Gm Oint...g., 1 YESSI TP BID for WOUND CARE for 5 Days, #10 DIRECTED BY PHYSICIAN Prescribed by: JOLIE WOODWARD MD on 05/06/20 1333 Chlorhexidine Gluconate (Chlorhexidine Gluconate) 473 Ml Mouthwash, 15 ML SWSP BID for Oral surgery for 5 Days, #150 Prescribed by: JOLIE WOODWARD MD on 05/06/20 1333 Omeprazole Magnesium (Prilosec Otc) 20 Mg Tablet.dr, 1 TAB PO DAILY for GERD for 30 Days, #30 Ref 0 (Reported) Entered as Reported by: JUANA MICHELLE on 05/05/20 0442 Last Action: Reviewed on 05/05/202045 by KAYLYN COLEMAN Scheduled PRN Hydrocodone Bit/Acetaminophen (Hydrocodone-Apap 5-325 ) 1 Tab Tablet, 1 TAB PO PRN Q4HRS PRN for PAIN for 6 Days, #20 Prescribed by: JOLIE WOODWARD MD on 05/06/20 1334 Justicifation of Admission Dx: Justifications for Admission: Justification of Admission Dx: Yes JOLIE WOODWARD MD May 06, 2020 13:36
--- NOTE | 2020-05-06 14:47 | NUR ---
Patient discharged home today with self care via wheelchair accompanied by spouse and this RN. Patient is Stable, IV removed, discharge paperwork and prescriptions given to patient. Patient and spouse verbalized understanding of discharge instruction and follow up appointment. Since it is the weekend, patient and were educated to call for follow up on Friday.
== END 2020-05-06 14:53 | disposition home or self-care (01) | DRG 142 ==
LOC: ER 13:48 → ED HOLD 15:10 → 4 NORTH 18:12
PROVIDERS: ADMIT Internal Medicine; ATTEND Internal Medicine
PROC: 0HQ1XZZ Repair Face Skin, External Approach (ICD-10-PCS; 2020-05-04)
PROC: 0CQ1XZZ Repair Lower Lip, External Approach (ICD-10-PCS; 2020-05-04)
PROC: 0WB Anatomical Regions, General, Excision (ICD-10-PCS; 2020-05-05)
PROC: 0NSV04Z Reposition Left Mandible with Internal Fixation Device, Open Approach (ICD-10-PCS; principal; 2020-05-05 16:30)
DX: S02.611A Fracture of condylar process of right mandible, initial encounter for closed fracture (principal); W01.0XXA Fall on same level from slipping, tripping and stumbling without subsequent striking against object, initial encounter; Z83.3 Family history of diabetes mellitus; Y93.01 Activity, walking, marching and hiking; S01.81XA Laceration without foreign body of other part of head, initial encounter; S01.511A Laceration without foreign body of lip, initial encounter; Y92.89 Other specified places as the place of occurrence of the external cause; Y99.8 Other external cause status; S02.66XA Fracture of symphysis of mandible, initial encounter for closed fracture; Z20.822 Contact with and (suspected) exposure to COVID-19; K13.79 Other lesions of oral mucosa; D10.39 Benign neoplasm of other parts of mouth
CPT/HCPCS: 12013; 36415; 70110; 70450; 70486; 72125; 80053; 85025; 87426; 90471; 90715; 96374; 96375; J0295; J0330; J0690; J1100; J2270; J2405; J2704; J2710; J3010; J3490; J7030; J7120; U0003; 97535-GO; 99285-25; G0378